=== PATIENT | male | born 1995 | race Two or more races ===

== ENCOUNTER 2019-12-21 07:51 | Emergency (ER) | payer MEDICAID ==
[~2019-12-21] VITALS: Ht 165.1 cm; Wt 65.8 kg
[2019-12-21 07:57] VITALS: BP 116/66
[2019-12-21] MEDS ORDERED: FLUORESCEIN SODIUM OPHTH 1 EA STRIP ONE (08:08)
--- NOTE | 2019-12-21 08:21 | NUR ---
BIBS. TO ER BED 4. AAOX4. NOT IN RESP DISTRESS. AMBULATORY. C/O L EYE PAIN S'P METAL WENT IN TO THE EYE WHILE CUTTING A PIECE OF METAL @ 0600. NOTED REDNESS ON LEFT EYE RATES PAIN 5/10. NO DISCHARGE NOTED FROM EYE. MD IS AT BEDSIDE FOR EVAL. VISUAL ACUITY DONE.
[2019-12-21] MEDS ORDERED: TETRACAINE HCL 0.5% OPHTALMIC 15 ML BOTTLE OP ONE (08:30)
[2019-12-21] MEDS ORDERED: FLUORESCEIN SODIUM OPHTH 1 EA STRIP OP ONE (08:30)
--- NOTE | 2019-12-21 09:33 | NUR ---
RON SCHWARTZ (OPTHALMOLOGY)
--- NOTE | 2019-12-21 09:40 | NUR ---
DR. SCHWARTZ CALLED BACK AND TRANSFERRED TO DR. HERNANDEZ
--- NOTE | 2019-12-21 10:14 | NUR ---
Patient discharged to home in stable condition. Written and verbal after care instructions given. Patient verbalizes understanding of instruction. Pt ambulatory with a steady gait
== END 2019-12-21 10:19 | disposition home or self-care (01) ==
LOC: ER 07:53
DX: H57.89 Other specified disorders of eye and adnexa (principal)
CPT/HCPCS: 70486-TC